=== PATIENT | female | born 1995 | race Caucasian/White ===

== ENCOUNTER 2022-12-31 07:37 | Inpatient (IN) ==
[2022-12-31] MEDS ORDERED: OXYTOCIN 30 UNITS/500 ML BAG IV PRN (08:48)
[2022-12-31] MEDS ORDERED: LIDOCAINE 1% LOCAL 20 ML VIAL INFIL PRN (08:48)
[2022-12-31] MEDS: LACTATED RINGER'S 1,000 ML IV PRN (09:05)
[2022-12-31 09:24] LABS: Hematocrit (blood only) 34.5 % (37.0-47.0); Hemoglobin 11.8 g/dl (12.0-16.0); Mean Corpuscular Hemoglobin 27.1 pg (25.0-34.0); Mean Corpuscular Hgb Conc 34.2 g/dL (32.0-36.0); Mean Corpuscular Volume 79.3 fL (80.0-100.0); Mean Platelet Volume 10.1 fL (9.4-12.4); Platelet Count 214 K/uL (130-400); RDW Coefficient of Variation 13.4 % (11.5-14.5); RDW Standard Deviation 38.1 fL (36.4-46.3); Red Blood Count 4.35 M/uL (4.20-5.40); White Blood Count 9.49 K/ul (4.8-10.8)
--- NOTE | 2022-12-31 09:39 | Labor Progress Brief Note ---
Date of Service December 31, 2022 Assessment & Plan Admission and Anticipated Discharge Date Admission Date: December 31, 2022 Physical Exam Genitourinary: Manual OB Exam: + cervical dilation 1 cm, + cervical effacement 50% and + station high OB Exam Monitor Tracing: + external FHT monitor used, + external uterine monitor used and + category I Will star Cytotec for cervical ripening Results & Data Vital Signs (Past 12 Hours) Vital Signs Temp Pulse Resp BP Pulse Ox 12/31/22 09:34 109 H 90 12/31/22 09:32 101 H 92 12/31/22 09:31 107 H 123/77 12/31/22 09:27 110 H 93 12/31/22 09:23 105 H 121/81 12/31/22 09:20 104 H 93 12/31/22 09:04 109 H 93 12/31/22 09:01 103 H 129/85 12/31/22 08:59 110 H 93 12/31/22 08:54 108 H 94 12/31/22 08:51 104 H 123/80 12/31/22 08:49 107 H 95 12/31/22 08:44 111 H 94 12/31/22 08:39 93 12/31/22 08:39 109 H 12/31/22 08:39 110 H 93 12/31/22 08:09 113 H 123/87 12/31/22 07:56 19 12/31/22 07:56 36.8 C 19 12/31/22 07:57 114 H 134/92
[2022-12-31] MEDS: ALBUT/IPRATROP 3MG/0.5MG NEB 3 ML VIAL NEB PRN ×3 (09:42→19:30)
[2022-12-31] MEDS: miSOPROStoL 50 MCG TAB PO SCH ×3 (09:54→20:00)
--- NOTE | 2022-12-31 10:52 | History & Physical Report ---
Date of Service December 31, 2022 Assessment & Plan (1) Post-dates : Plan: Cytotec for cervical ripening (2) Persistent asthma: Plan: aerosol nebulizer treatment prn Admission and Anticipated Discharge Date Admission Date: December 31, 2022 History of Present Illness Chief Complaint: induction of labor Primary Care Provider: Abraham Lindsey MD 27 F P0000 at 41.1 weeks admitted for IOL for post dates . GBS is negative. Allergies Allergy/AdvReac Type Severity Reaction Status Date / Time ENVIRONMENTAL Allergy Unknown Unknown Uncoded 07/11/14 23:11 Home Medications Medication Instructions Recorded Confirmed Type azelastine 137 mcg (0.1 %) nasal 1 spray intranasal AMHS 07/30/22 07/30/22 History spray aerosol fluticasone furoate 200 230 inh inhalation BID 07/30/22 12/31/22 History mcg-vilanterol 25 mcg/dose inhalation powder (Breo Ellipta) omeprazole 40 mg capsule,delayed 40 mg PO BID 07/30/22 12/31/22 History release ondansetron HCl 8 mg tablet 8 mg PO TID 07/30/22 07/30/22 History vit no.95-ferrous 1 tab PO DAILY 07/30/22 12/31/22 History fumarate 28 mg-folic acid 800 mcg tablet () pyridoxine (vitamin B6) 25 mg 12.5 mg PO HS PRN Nausea 07/30/22 07/30/22 History tablet (Vitamin B-6) tiotropium bromide 2.5 2.5 mcg inhalation UD 07/30/22 12/31/22 History mcg/actuation mist for inhalation (Spiriva Respimat) Patient History Medical History Bronchiectasis Eosinophilic esophagitis GERD (gastroesophageal reflux disease) Persistent asthma Seasonal allergies Family History Father Hypertension Social History Smoking Status: Never smoker Hx Alcohol Use: No Hx Substance Use: No Preferred Language: Yakut Communication Ability: Effective 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 Beliefs That Will Affect Care: None marital status: Current Living Situation: Spouse Feels Safe at Home: Yes Assistive Devices: None OB History primip [employer] History neg Review of Systems All systems reviewed & are unremarkable except as noted in HPI & below Physical Exam Eyes: PERRL, conjunctivae normal, anicteric sclerae Respiratory: normal respiratory effort, lungs clear to auscultation Cardiovascular: RRR, no murmur, no edema Gastrointestinal (Abdomen): normal bowel sounds, soft, nontender, no hepatosplenomegaly Musculoskeletal: Extremities: extremities normal to inspection Skin: no rashes, warm and dry Neurologic: patellar DTR's 2+ bilat, sensation intact Psychiatric: A+Ox3, euthymic affect Genitourinary: no vaginal lesions, no adnexal mass Manual OB Exam: + cervical dilation 1 cm, + cervical effacement 50% and + station high OB Exam Monitor Tracing: + external FHT monitor used, + external uterine monitor used and + category I Results & Data Vital Signs (Past 12 Hours) Vital Signs Temp Pulse Pulse Resp BP Pulse Ox O2 Del Method 12/31/22 09:51 95 H 18 94 Room Air 12/31/22 10:33 114 H 95 12/31/22 10:28 116 H 95 12/31/22 10:22 118 H 92 12/31/22 10:17 112 H 91 12/31/22 10:12 107 H 89 L 12/31/22 10:09 112 H 90 12/31/22 10:07 113 H 92 12/31/22 10:02 119 H 92 12/31/22 09:57 112 H 92 12/31/22 09:52 118 H 93 12/31/22 09:47 112 H 98 12/31/22 09:42 104 H 94 12/31/22 09:37 90 95 12/31/22 09:34 109 H 90 12/31/22 09:32 101 H 92 12/31/22 09:31 107 H 123/77 12/31/22 09:27 110 H 93 12/31/22 09:23 105 H 121/81 12/31/22 09:20 104 H 93 12/31/22 09:04 109 H 93 12/31/22 09:01 103 H 129/85 12/31/22 08:59 110 H 93 12/31/22 08:54 108 H 94 12/31/22 08:51 104 H 123/80 12/31/22 08:49 107 H 95 12/31/22 08:44 111 H 94 12/31/22 08:39 93 12/31/22 08:39 109 H 12/31/22 08:39 110 H 93 12/31/22 08:09 113 H 123/87 12/31/22 07:56 19 12/31/22 07:56 36.8 C 19 12/31/22 07:57 114 H 134/92 12/31/22 09:07 36.8 C 109 H 93 Room Air Laboratory Results 12/31/22 12/31/22 09:00 09:01 WBC 9.49 RBC 4.35 Hgb 11.8 L Hct 34.5 L MCV 79.3 L MCH 27.1 MCHC 34.2 RDW Std Deviation 38.1 RDW Coeff of Jillian 13.4 Plt Count 214 MPV 10.1 SARS-CoV-2, RNA, NAAT NEGATIVE Code Status & VTE Plan VTE Prophylaxis Plan VTE Prophylaxis will be ordered: No Monitoring External Monitor Cat 1
[2022-12-31] MEDS ORDERED: BUTORPHANOL TARTRATE 1 MG/ML VIAL IV PRN (22:45)
[2023-01-01] MEDS: miSOPROStoL 50 MCG TAB PO SCH (06:30)
[2023-01-01] MEDS ORDERED: OXYTOCIN 30 UNITS/500 ML BAG IV PRN (07:37)
--- NOTE | 2023-01-01 07:40 | Labor Progress Brief Note ---
Date of Service January 01, 2023 Assessment & Plan Admission and Anticipated Discharge Date Admission Date: December 31, 2022 Physical Exam Genitourinary: Manual OB Exam: + cervical dilation (cervix soft and more anterior) 3 cm, + cervical effacement 70% and + station -2 OB Exam Monitor Tracing: + external FHT monitor used, + external uterine monitor used, + category I and + normal FHT variability will start Oxytocin Results & Data Vital Signs (Past 12 Hours) Vital Signs Temp Pulse Resp BP 01/01/23 07:24 103 H 120/91 01/01/23 04:48 36.8 C 107 H 18 121/77 12/31/22 22:46 110 H 128/87 12/31/22 22:30 36.7 C
[2023-01-01] MEDS: LACTATED RINGER'S 1,000 ML IV PRN ×3 (08:54→19:22)
--- NOTE | 2023-01-01 15:45 | Labor Progress Brief Note ---
Date of Service January 01, 2023 Assessment & Plan Admission and Anticipated Discharge Date Admission Date: December 31, 2022 Physical Exam Genitourinary: Manual OB Exam: + cervical dilation 4 cm, + cervical effacement 70% and 80%, + station -2 and + amniotic fluid (AROM with Amni-hook light meconium fluid noted) meconium OB Exam Monitor Tracing: + external FHT monitor used, + external uterine monitor used, + category I and + normal FHT variability Results & Data Vital Signs (Past 12 Hours) Vital Signs Temp Pulse Resp BP 01/01/23 14:57 106 H 129/88 01/01/23 13:00 102 H 123/82 01/01/23 12:04 88 127/89 01/01/23 11:01 98 H 119/79 01/01/23 10:01 97 H 120/85 01/01/23 08:58 107 H 128/86 01/01/23 07:24 103 H 120/91 01/01/23 04:48 36.8 C 107 H 18 121/77
[2023-01-01] MEDS ORDERED: BUPIVACAINE 0.25% PF 30 ML VIAL ONE (17:24)
[2023-01-01] MEDS ORDERED: ePHEDrine sulfate 50 MG/ML AMP ONE (17:24)
[2023-01-01] MEDS ORDERED: fentaNYL citrate PF 100 MCG/2 ML VIAL ONE (17:24)
[2023-01-01] MEDS ORDERED: SODIUM CHLORIDE 0.9% PF INJ 10 ML VIAL ONE (17:24)
[2023-01-01] MEDS ORDERED: LIDOCAINE 2%/EPINEPHRINE 1:200,000 20 ML PF ONE (17:25)
[2023-01-01] MEDS ORDERED: fentaNYL 2MCG/ML ROPIVACAINE 1.25MG/ML 100 ML BAG EPI ONE (17:25)
[2023-01-01] MEDS ORDERED: ePHEDrine sulfate 50 MG/ML AMP IV PRN (17:30)
[2023-01-01] MEDS ORDERED: SODIUM CHLORIDE 0.9% PF INJ 10 ML VIAL EPI STA (17:30)
[2023-01-01] MEDS ORDERED: ROPIVACAINE 0.5% PF 5 MG/ML 20 ML VIAL EPI PRN (17:30)
[2023-01-01] MEDS ORDERED: diphenhydrAMINE 50 MG/ML VIAL IV PRN (17:30)
[2023-01-01] MEDS ORDERED: NALBUPHINE HCL INJ 10 MG/ML AMP IV PRN (17:30)
[2023-01-01] MEDS ORDERED: BUPIVACAINE 0.25% PF 30 ML VIAL EPI STA (17:30)
[2023-01-01] MEDS ORDERED: LIDOCAINE 2% MPF LOCAL 5 ML VIAL EPI PRN (17:30)
[2023-01-01] MEDS ORDERED: NALOXONE HCL 0.4 MG/1 ML VIAL/CARP IV PRN (17:30)
[2023-01-01] MEDS ORDERED: SODIUM CHLORIDE 0.9% PF INJ 10 ML VIAL EPI PRN (17:30)
[2023-01-01] MEDS ORDERED: LIDOCAINE 2%/EPINEPHRINE 1:200,000 20 ML PF EPI STA (17:30)
[2023-01-01] MEDS ORDERED: ONDANSETRON INJ 2 MG/ML 2 ML VIAL IV PRN (17:30)
[2023-01-01] MEDS ORDERED: fentaNYL citrate PF 100 MCG/2 ML VIAL EPI PRN (17:30)
[2023-01-01] MEDS ORDERED: NALOXONE HCL 1 MG in SODIUM CHLORIDE 0.9% 1000ML 1,000 ML IV PRN (17:30)
[2023-01-01] MEDS ORDERED: fentaNYL citrate PF 100 MCG/2 ML VIAL EPI STA (17:30)
[2023-01-01] MEDS ORDERED: BUPIVACAINE 0.25% PF 30 ML VIAL EPI PRN (17:30)
--- NOTE | 2023-01-01 17:32 | Anesthesiology Consultation ---
Date of Service January 01, 2023 Assessment & Plan ASA ASA2 Proposed Anesthesia Anesthesia Type: Labor Epidural Risk / Benefits Reviewed With: PT / POA / Parent / Guardian, Accepts Plan and Informed Consent Obtained History Height/Weight Height: 5 ft 3 in Weight: 168 kg Allergies Allergy/AdvReac Type Severity Reaction Status Date / Time No Known Allergies Allergy Verified 01/01/23 11:00 Medications Home Medications Medication Instructions Recorded Confirmed Last Taken azelastine 137 mcg (0.1 %) nasal 1 spray intranasal AMHS 07/30/22 07/30/22 Unknown spray aerosol fluticasone furoate 200 230 inh inhalation BID 07/30/22 12/31/22 12/31/22 mcg-vilanterol 25 mcg/dose 1 puff inhalation powder (Breo Ellipta) omeprazole 40 mg capsule,delayed 40 mg PO BID 07/30/22 12/31/22 12/31/22 release 0600 ondansetron HCl 8 mg tablet 8 mg PO TID 07/30/22 07/30/22 Unknown vit no.95-ferrous 1 tab PO DAILY 07/30/22 12/31/22 12/31/22 fumarate 28 mg-folic acid 800 mcg 0600 tablet () pyridoxine (vitamin B6) 25 mg 12.5 mg PO HS PRN Nausea 07/30/22 07/30/22 Unknown tablet (Vitamin B-6) tiotropium bromide 2.5 2.5 mcg inhalation UD 07/30/22 12/31/22 12/31/22 mcg/actuation mist for inhalation 2 puffs (Spiriva Respimat) Active Medications Generic Name Dose Route Start Last Admin Trade Name Freq PRN Reason Stop Dose Admin Albuterol 3 ml 12/31/22 09:32 12/31/22 19:30 Albut/Ipratrop 3mg/0.5mg Neb 3 Ml Vial NEB 01/30/23 10:59 3 ml Q4R PRN Administration Shortness Of Breath Protocol Butorphanol Tartrate 1 mg 12/31/22 22:45 01/01/23 15:42 Butorphanol Tartrate 1 Mg/Ml Vial IV 01/30/23 22:44 1 mg Q2HWA PRN Administration Pain Lactated Ringer's 1,000 mls @ 125 mls/hr 12/31/22 08:48 01/01/23 17:00 Lr IV 01/02/23 08:47 999 mls/hr .Q8H PRN Infusion L&D Protocol Protocol Oxytocin 30 units in 500 mls @ 5 mls/hr 01/01/23 07:37 01/01/23 16:59 Pitocin IV 01/03/23 07:36 0.3 units/hr .Q24H PRN 5 mls/hr Labor Induction/Augmentation Titration Protocol 0.3 UNITS/HR Misoprostol 50 mcg 12/31/22 09:45 01/01/23 06:30 Misoprostol 50 Mcg Tab PO 01/30/23 09:44 Not Given Q4 SURJIT Ropivacaine 100 ml 01/01/23 17:30 01/01/23 18:01 Fentanyl 2mcg/Ml Ropivacaine 1.25mg/Ml 100 Ml Bag EPI 01/02/23 17:29 100 ml PRN PRN Administration Pain R/T Labor Protocol Past Medical History Medical History Bronchiectasis Eosinophilic esophagitis GERD (gastroesophageal reflux disease) Persistent asthma Seasonal allergies Exercise / Class Metabolic Activity II 4-5 Yardwork/Stairs/Walk up hill Past Family History Family History Father Hypertension Past Anesthesia History No Hx of Anesthesia Complications and No Family Hx of Anesthesia Complications History of PONV No Hx of PONV and No Hx of Motion Sickness Social History Smoking Status: Never smoker Hx Alcohol Use: No Hx Substance Use: No Review of Systems denies fever/cough/ colds/ chest pain/ SOB/ ANNELISE denies ANNELISE Physical Exam Vital Signs Last Vital Signs Temp 37.5 C 01/01/23 15:50 Pulse 103 H 01/01/23 18:07 Resp 22 01/01/23 15:50 BP 123/81 01/01/23 18:07 Pulse Ox 97 01/01/23 18:05 O2 Del Method Room Air 12/31/22 19:06 ENMT Mouth: no TMJ abnormality and no dentition abnormality Thyromental Distance: > or= 3.5 Finger Breadths Mallampati Class: II Neck neck extension not limited Respiratory normal respiratory effort; no respiratory distress Auscultation: lungs clear to auscultation bilaterally Cardiovascular Rate/Rhythm: regular rate and regular rhythm Neurologic moves all extremities Psychiatric Orientation: alert and oriented x 3 Testing Laboratory Results 12/31/22 09:01
[2023-01-01] MEDS: fentaNYL 2MCG/ML ROPIVACAINE 1.25MG/ML 100 ML BAG EPI PRN ×2 (18:01→23:34)
--- NOTE | 2023-01-01 21:11 | Labor Progress Brief Note ---
Date of Service January 01, 2023 Assessment & Plan Admission and Anticipated Discharge Date Admission Date: December 31, 2022 Physical Exam Genitourinary: Manual OB Exam: + cervical dilation 4 cm and 5 cm, + cervical effacement 90% and + station -2 OB Exam Monitor Tracing: + external FHT monitor used, + external uterine monitor used, + category I and + normal FHT variability Results & Data Vital Signs (Past 12 Hours) Vital Signs Temp Pulse Resp BP Pulse Ox O2 Del Method 01/01/23 19:20 37.0 C 18 01/01/23 19:20 Room Air 01/01/23 21:05 114 H 97 01/01/23 21:02 116 H 123/83 01/01/23 21:00 115 H 97 01/01/23 20:55 108 H 98 01/01/23 20:50 115 H 94 01/01/23 20:45 112 H 98 01/01/23 20:46 111 H 109/65 01/01/23 20:41 110 H 85 L 01/01/23 20:40 110 H 97 01/01/23 20:35 109 H 96 01/01/23 20:32 112 H 108/70 01/01/23 20:30 36.9 C 116 H 20 98 01/01/23 20:25 108 H 98 01/01/23 20:20 110 H 99 01/01/23 20:17 105 H 121/73 01/01/23 20:15 111 H 99 01/01/23 20:10 95 H 99 01/01/23 20:05 105 H 98 01/01/23 20:00 103 H 100 01/01/23 20:01 108 H 130/82 01/01/23 19:55 114 H 98 01/01/23 19:50 109 H 100 01/01/23 19:47 107 H 123/80 01/01/23 19:45 98 H 99 01/01/23 19:40 100 H 100 01/01/23 19:35 103 H 99 01/01/23 19:30 97 H 125/80 100 01/01/23 19:25 102 H 99 01/01/23 19:20 97 H 96 01/01/23 19:15 98 01/01/23 19:15 101 H 01/01/23 19:15 101 H 121/81 90 01/01/23 19:10 110 H 100 01/01/23 19:05 104 H 100 01/01/23 19:00 100 H 100 01/01/23 19:01 100 H 119/80 01/01/23 18:55 94 H 100 01/01/23 18:50 98 H 99 01/01/23 18:45 96 H 99 01/01/23 18:44 93 H 119/92 01/01/23 18:40 103 H 99 01/01/23 18:37 100 H 119/65 01/01/23 18:35 108 H 98 01/01/23 18:33 102 H 117/55 L 01/01/23 18:30 101 H 98 01/01/23 18:28 100 H 122/59 L 01/01/23 18:25 98 H 98 01/01/23 18:23 111 H 120/77 01/01/23 18:20 102 H 98 01/01/23 18:18 107 H 117/75 01/01/23 18:15 36.7 C 99 H 18 98 01/01/23 18:14 103 H 141/84 H 01/01/23 18:10 101 H 98 01/01/23 18:07 103 H 123/81 01/01/23 18:05 100 H 97 01/01/23 18:04 99 H 121/80 01/01/23 18:03 101 H 126/79 01/01/23 18:00 97 H 96 01/01/23 18:01 96 H 126/75 01/01/23 17:59 100 H 125/69 01/01/23 17:57 103 H 112/76 01/01/23 17:55 113 H 96 01/01/23 17:54 115 H 94 01/01/23 17:50 109 H 97 01/01/23 17:45 116 H 95 01/01/23 15:50 22 01/01/23 15:50 37.5 C 22 01/01/23 14:57 106 H 129/88 01/01/23 13:00 102 H 123/82 01/01/23 12:04 88 127/89 01/01/23 11:01 98 H 119/79 01/01/23 10:01 97 H 120/85
[2023-01-02] MEDS: LACTATED RINGER'S 1,000 ML IV PRN ×2 (01:15→07:20)
[2023-01-02] MEDS: fentaNYL 2MCG/ML ROPIVACAINE 1.25MG/ML 100 ML BAG EPI PRN (04:21)
[2023-01-02] MEDS ORDERED: NURSING L&D Epidural Breakthrough Pain Update ONE (04:25)
[2023-01-02] MEDS ORDERED: ROPIVACAINE 0.5% 5 MG/ML 30 ML VIAL ONE (05:12)
[2023-01-02] MEDS ORDERED: fentaNYL citrate PF 100 MCG/2 ML VIAL ONE ×3 (05:12→08:33)
[2023-01-02] MEDS ORDERED: LIDOCAINE 2%/EPINEPHRINE 1:200,000 20 ML PF ONE (05:12)
--- NOTE | 2023-01-02 05:20 | Anesthesia Procedure Note ---
Date of Service January 02, 2023 Anesthesia Epidural Re-Dose Vital Signs Temp Pulse Resp BP Pulse Ox O2 Del Method 37.3 C 125 H 18 139/96 97 Room Air 01/02/23 05:13 01/02/23 05:16 01/02/23 05:13 01/02/23 05:16 01/02/23 05:15 01/01/23 19:20 Notes Pain Intensity: 4 Dilatation (cm): 5.5 Effacement (%): 90 Called by nursing to evaluate epidural as the patient is having increased pain. The epidural was re-dosed with the following medications (all medications via epidural route) after negative aspiration of the epidural catheter for CSF/HEME. 2ml 2% lidocaine with epi, 3mL ropivacaine 0.5% and 100 mcg fetanyl via epidural After Epidural Re-Dose Mental Status: alert / awake / arousable Pain: improving with treatment Airway Patency, RR, SpO2: stable & adequate BP & HR: stable & adequate
[2023-01-02] MEDS ORDERED: CITRIC ACID/SODIUM CITRATE 15 ML UDC PO SCH (06:00)
[2023-01-02] MEDS ORDERED: ceFAZolin 2000MG 2,000 MG/15 ML SYR IV SCH (06:00)
--- NOTE | 2023-01-02 06:40 | Labor Progress Brief Note ---
Date of Service January 02, 2023 Assessment & Plan Admission and Anticipated Discharge Date Admission Date: December 31, 2022 Physical Exam Genitourinary: Manual OB Exam: + cervical dilation 5 cm, + cervical effacement 90% and + station -1 OB Exam Monitor Tracing: + external FHT monitor used, + external uterine monitor used, + category I and + normal FHT variability No progress in labor over several hours. Arrest of progress/CPD/41.2 weeks as indication for I discussed this with patient and her Consent idalmis and risks/benefits explained to patient. Results & Data Vital Signs (Past 12 Hours) Vital Signs Temp Pulse Resp BP Pulse Ox O2 Del Method 01/01/23 19:20 37.0 C 18 01/01/23 19:20 Room Air 01/02/23 06:34 142 H 89 L 01/02/23 06:30 144 H 98 01/02/23 06:25 141 H 91 01/02/23 06:22 132 H 86 L 01/02/23 06:20 137 H 97 01/02/23 06:16 115 H 108/69 01/02/23 06:15 116 H 93 01/02/23 06:10 131 H 93 01/02/23 06:05 115 H 96 01/02/23 06:01 120 H 109/67 01/02/23 06:00 128 H 95 01/02/23 05:55 121 H 97 01/02/23 05:50 132 H 97 01/02/23 05:48 136 H 87 L 01/02/23 05:47 121 H 110/67 01/02/23 05:45 120 H 96 01/02/23 05:40 124 H 97 01/02/23 05:35 124 H 97 01/02/23 05:36 121 H 112/68 01/02/23 05:30 135 H 97 01/02/23 05:25 133 H 97 01/02/23 05:20 128 H 97 01/02/23 05:16 125 H 139/96 01/02/23 05:15 127 H 97 01/02/23 05:13 18 01/02/23 05:13 37.3 C 18 01/02/23 05:10 124 H 98 01/02/23 05:05 124 H 99 01/02/23 05:03 141 H 88 L 01/02/23 05:01 120 H 120/78 01/02/23 05:00 126 H 95 01/02/23 04:55 115 H 96 01/02/23 04:50 121 H 96 01/02/23 04:46 126 H 130/71 01/02/23 04:45 122 H 97 01/02/23 04:40 133 H 95 01/02/23 04:35 133 H 95 01/02/23 04:30 129 H 96 01/02/23 04:31 126 H 130/78 01/02/23 04:25 132 H 95 01/02/23 04:20 132 H 97 01/02/23 04:15 136 H 95 01/02/23 04:16 141 H 123/73 01/02/23 04:12 18 01/02/23 04:12 37.5 C 18 01/02/23 04:10 135 H 95 01/02/23 04:05 128 H 95 01/02/23 04:00 125 H 93 01/02/23 04:01 123 H 122/77 01/02/23 03:55 122 H 92 01/02/23 03:50 124 H 93 01/02/23 03:47 125 H 119/73 01/02/23 03:45 121 H 94 01/02/23 03:40 142 H 95 01/02/23 03:35 126 H 93 01/02/23 03:30 125 H 18 130/85 94 01/02/23 03:25 120 H 93 01/02/23 03:20 121 H 92 01/02/23 03:15 120 H 135/83 93 01/02/23 03:10 122 H 93 01/02/23 03:05 121 H 92 01/02/23 03:00 120 H 18 130/87 94 01/02/23 02:55 118 H 93 01/02/23 02:50 119 H 93 01/02/23 02:47 121 H 132/88 01/02/23 02:45 117 H 94 01/02/23 02:40 118 H 94 01/02/23 02:35 117 H 94 01/02/23 02:30 125 H 133/90 95 01/02/23 02:25 127 H 96 01/02/23 02:20 124 H 95 01/02/23 02:15 120 H 96 01/02/23 02:16 121 H 130/84 01/02/23 02:10 119 H 96 01/02/23 02:05 116 H 96 01/02/23 02:02 116 H 145/87 H 01/02/23 02:00 119 H 97 01/02/23 01:55 115 H 95 01/02/23 01:50 114 H 97 01/02/23 01:45 124 H 96 01/02/23 01:46 118 H 132/79 01/02/23 01:40 122 H 96 01/02/23 01:35 121 H 97 01/02/23 01:30 115 H 96 01/02/23 01:31 114 H 126/90 01/02/23 01:25 116 H 98 01/02/23 01:20 115 H 97 01/02/23 01:19 18 01/02/23 01:19 37.0 C 18 01/02/23 01:17 116 H 137/95 01/02/23 01:15 120 H 96 01/02/23 01:10 121 H 96 01/02/23 01:05 113 H 99 01/02/23 01:01 121 H 134/87 01/02/23 01:00 126 H 99 01/02/23 00:55 123 H 95 01/02/23 00:50 119 H 94 01/02/23 00:46 114 H 137/95 01/02/23 00:45 114 H 94 01/02/23 00:40 111 H 95 01/02/23 00:35 110 H 98 01/02/23 00:30 113 H 94 01/02/23 00:31 111 H 134/91 01/02/23 00:25 110 H 94 01/02/23 00:20 109 H 97 01/02/23 00:18 112 H 133/92 01/02/23 00:15 116 H 99 01/02/23 00:10 120 H 99 01/02/23 00:05 131 H 97 01/02/23 00:01 118 H 123/80 01/02/23 00:00 110 H 94 01/01/23 23:55 108 H 94 01/01/23 23:50 110 H 94 01/01/23 23:46 113 H 118/76 01/01/23 23:45 110 H 95 01/01/23 23:40 108 H 96 07/12/23 23:35 113 H 97 01/01/23 23:32 112 H 119/73 01/01/23 23:30 118 H 98 01/01/23 23:25 109 H 96 01/01/23 23:20 112 H 96 01/01/23 23:16 111 H 128/81 01/01/23 23:15 116 H 96 01/01/23 23:10 111 H 96 01/01/23 23:05 115 H 97 01/01/23 23:02 117 H 134/80 01/01/23 23:00 111 H 97 01/01/23 22:55 37.5 C 120 H 18 97 01/01/23 22:52 120 H 147/78 H 01/01/23 22:50 127 H 96 01/01/23 22:47 142 H 162/107 H 01/01/23 22:45 117 H 99 01/01/23 22:40 115 H 98 01/01/23 22:35 116 H 99 01/01/23 22:30 116 H 98 01/01/23 22:31 117 H 120/71 01/01/23 22:25 112 H 98 01/01/23 22:20 114 H 99 01/01/23 22:16 120 H 126/62 01/01/23 22:15 114 H 98 01/01/23 22:10 120 H 96 01/01/23 22:05 119 H 98 01/01/23 22:00 113 H 95 01/01/23 22:01 129 H 119/67 01/01/23 21:55 122 H 97 01/01/23 21:50 121 H 96 01/01/23 21:46 116 H 137/92 01/01/23 21:45 118 H 97 01/01/23 21:40 121 H 96 01/01/23 21:35 111 H 98 01/01/23 21:30 117 H 140/91 97 01/01/23 21:25 113 H 99 01/01/23 21:20 123 H 98 01/01/23 21:17 18 01/01/23 21:17 37.7 C H 18 01/01/23 21:15 115 H 98 01/01/23 21:16 114 H 138/85 01/01/23 21:10 120 H 97 01/01/23 21:05 114 H 97 01/01/23 21:02 116 H 123/83 01/01/23 21:00 115 H 97 01/01/23 20:55 108 H 98 01/01/23 20:50 115 H 94 01/01/23 20:45 112 H 98 01/01/23 20:46 111 H 109/65 01/01/23 20:41 110 H 85 L 01/01/23 20:40 110 H 97 01/01/23 20:35 109 H 96 01/01/23 20:32 112 H 108/70 01/01/23 20:30 36.9 C 116 H 20 98 01/01/23 20:25 108 H 98 01/01/23 20:20 110 H 99 01/01/23 20:17 105 H 121/73 01/01/23 20:15 111 H 99 01/01/23 20:10 95 H 99 01/01/23 20:05 105 H 98 01/01/23 20:00 103 H 100 01/01/23 20:01 108 H 130/82 01/01/23 19:55 114 H 98 01/01/23 19:50 109 H 100 01/01/23 19:47 107 H 123/80 01/01/23 19:45 98 H 99 01/01/23 19:40 100 H 100 01/01/23 19:35 103 H 99 01/01/23 19:30 97 H 125/80 100 01/01/23 19:25 102 H 99 01/01/23 19:20 97 H 96 01/01/23 19:15 98 01/01/23 19:15 101 H 01/01/23 19:15 101 H 121/81 90 01/01/23 19:10 110 H 100 01/01/23 19:05 104 H 100 01/01/23 19:00 100 H 100 01/01/23 19:01 100 H 119/80 01/01/23 18:55 94 H 100 01/01/23 18:50 98 H 99 01/01/23 18:45 96 H 99 01/01/23 18:44 93 H 119/92 01/01/23 18:40 103 H 99 01/01/23 18:37 100 H 119/65
[2023-01-02] MEDS ORDERED: AZITHROMYCIN 500 MG in DEXTROSE 5% 250 ML IV ONE (06:56)
[2023-01-02] MEDS ORDERED: LACTATED RINGER'S 1,000 ML IV SCH ×2 (07:00→09:54)
[2023-01-02] MEDS ORDERED: OXYTOCIN 10 UNITS/ML VIAL ONE (08:10)
[2023-01-02] MEDS ORDERED: ONDANSETRON INJ 2 MG/ML 2 ML VIAL ONE (08:10)
[2023-01-02] MEDS ORDERED: PHENYLEPHRINE 100MCG/ML 5ML SYR ONE (08:27)
[2023-01-02] MEDS ORDERED: METHYLERGONOVINE MALEATE 0.2 MG/ML AMP ONE (08:27)
[2023-01-02] MEDS ORDERED: MoRPHine SULFATE PF 1 MG/ML 10 ML AMP/VIAL ONE (08:35)
--- NOTE | 2023-01-02 09:12 | Anesthesia Procedure Note ---
Date of Service January 02, 2023 Anesthesia Post Epidural Note Vital Signs Vital Signs: Temp Pulse Resp BP Pulse Ox O2 Del Method 37.3 C 131 H 18 118/79 80 L Room Air 01/02/23 05:13 01/02/23 09:10 01/02/23 05:13 01/02/23 09:06 01/02/23 09:10 01/01/23 19:20 Notes Mental Status: alert / awake / arousable Nausea / Vomiting: adequately controlled Pain: adequately controlled Airway Patency, RR, SpO2: stable & adequate BP & HR: stable & adequate Hydration State: stable & adequate Neuraxial Anesthesia: was administered and sensory block is resolving Anesthetic Complications: no major complications apparent and Pt Satisfied with anesthetic care Epidural: Removed without complications and With tip intact
[2023-01-02] MEDS ORDERED: diphenhydrAMINE 50 MG/ML VIAL IV PRN (09:14)
[2023-01-02] MEDS ORDERED: METOCLOPRAMIDE HCL 10 MG in SODIUM CHLORIDE 0.9% 50 ML IV PRN (09:14)
[2023-01-02] MEDS ORDERED: NALOXONE HCL 1 MG in SODIUM CHLORIDE 0.9% 1000ML 1,000 ML IV PRN (09:14)
[2023-01-02] MEDS ORDERED: HYDROmorphone INJ 0.5 MG/0.5 ML SYR IV PRN (09:14)
[2023-01-02] MEDS ORDERED: MEPERIDINE HCL 25 MG/ML CARP/VIAL IV PRN (09:14)
[2023-01-02] MEDS ORDERED: LACTATED RINGER'S 500 ML IV PRN (09:14)
[2023-01-02] MEDS ORDERED: ePHEDrine sulfate 50 MG/ML AMP IV PRN (09:14)
[2023-01-02] MEDS ORDERED: PROMETHAZINE HCL 12.5 MG in SODIUM CHLORIDE 0.9% 50 ML IV PRN (09:14)
[2023-01-02] MEDS ORDERED: ONDANSETRON INJ 2 MG/ML 2 ML VIAL IV PRN (09:14)
[2023-01-02] MEDS ORDERED: NALOXONE HCL 0.4 MG/1 ML VIAL/CARP IV PRN (09:14)
[2023-01-02] MEDS ORDERED: MoRPHine SULFATE 2 MG/ML CARP IV PRN (09:14)
[2023-01-02] MEDS ORDERED: NALOXONE HCL 0.08 MG in SYRINGE 1.8 ML IV PRN (09:14)
[2023-01-02] MEDS ORDERED: MoRPHine SULFATE PF 1 MG/ML 10 ML AMP/VIAL INT SPINAL ONE (09:14)
[2023-01-02] MEDS ORDERED: DC INTRASPINAL MORPHINE SCH (09:15)
[2023-01-02] MEDS ORDERED: SODIUM CHLORIDE 0.9% 1000ML 1,000 ML IV SCH (09:15)
[2023-01-02] MEDS ORDERED: NO NARCOTICS OR SEDATIVES SCH (09:15)
[2023-01-02] MEDS ORDERED: ACETAMINOPHEN 1,000 MG/100 ML VIAL IV PRN (09:16)
--- NOTE | 2023-01-02 09:16 | Post Operative Brief Note ---
Immediate Post Op Note v1 Date of Surgery January 02, 2023 Pre & Post Diagnosis Operation Date: 01/02/23 07:45 Pre-Op Diagnosis: Arrest of descent Failure to progress Postdates Post-Op Diagnosis: Arrest of descent Failure to progress Postdates I identified the patient and participated in the time-out.: Yes Procedure Operation Date: 01/02/23 07:45 Actual Procedures p Section in LD, of live male child at 0810 - Casey Yan MD Surgeon Casey Yan MD Head Waiter Christina Ott RN Estimated Blood Loss 800 Findings Consistent with Post-Op Diagnosis live male Apgars 8/9 weight pending transverse lie Fluids LR 500 ml. Specimens placenta Drains Tam Catheter Anesthesia Type Labor Epidural Complications none Disposition Accompanied Patient To Recovery: Yes Overlapping Procedure I was present for: the critical portions of procedure. I was immediately available: during the entire case. Back up surgeon: was not required during procedure.
[2023-01-02] MEDS ORDERED: MAGNESIUM HYDROXIDE SUSP 30 ML UDC PO PRN (09:54)
[2023-01-02] MEDS ORDERED: PYRIDOXINE HCL 50 MG TAB PO PRN (09:54)
[2023-01-02] MEDS ORDERED: BENZOCAINE 20% AER SPR 82.5 GM CAN EXT PRN (09:54)
[2023-01-02] MEDS ORDERED: HYDROCORTISONE ACETATE 25 MG SUPP PR PRN (09:54)
[2023-01-02] MEDS ORDERED: DIPHTHERIA/TETANUS/PERTUSSIS Vaccine (Tdap, Age 7+yrs) 0.5mL SYR/VL IM ONE (09:54)
[2023-01-02] MEDS ORDERED: SENNA 8.6 MG TAB PO PRN (09:54)
[2023-01-02] MEDS: OXYTOCIN 20 UNITS in LACTATED RINGER'S 1,000 ML IV SCH ×2 (10:14→19:19)
[2023-01-02] MEDS: ceFAZolin 2000MG 2,000 MG/15 ML SYR IV SCH ×2 (10:16→17:46)
[2023-01-02] MEDS: NALBUPHINE HCL INJ 10 MG/ML AMP IV PRN ×5 (10:28→23:54)
[2023-01-02] MEDS: SIMETHICONE 80 MG CHEW PO SCH ×3 (12:42→20:26)
[2023-01-02] MEDS: KETOROLAC 30 MG/ML VIAL IV PRN ×2 (12:43→23:53)
[2023-01-02] MEDS: UMECLIDINIUM BROMIDE 62.5MCG/BLISTER 7 PUFFS/INHALER INH SCH (12:46)
[2023-01-02] MEDS: FLUTICASONE/VILANTEROL 200/25MCG 14 PUFFS/INHALER INH SCH (12:46)
[2023-01-02] MEDS ORDERED: AZITHROMYCIN 500 MG in DEXTROSE 5% 250 ML IV SCH (14:00)
--- NOTE | 2023-01-02 15:11 | Anesthesiology Progress Note ---
Date of Service January 02, 2023 Anesthesia Post Procedure Vital Signs Vital Signs: Temp Pulse Resp BP Pulse Ox O2 Del Method 01/02/23 11:05 120 H 16 124/77 97 01/02/23 10:35 122 H 18 124/63 91 01/02/23 10:05 138 H 16 131/73 94 01/02/23 09:55 134 H 18 118/67 93 01/02/23 09:45 135 H 18 119/69 01/02/23 09:36 150 H 18 95 01/02/23 09:25 139 H 20 111/84 95 01/02/23 09:15 130 H 16 116/79 96 01/02/23 09:05 37.0 C 126 H 18 118/79 97 01/01/23 19:20 37.0 C 18 01/01/23 19:20 Room Air 01/02/23 11:15 121 H 115/70 01/02/23 11:14 125 H 95 01/02/23 11:13 123 H 91 01/02/23 11:09 126 H 88 L 01/02/23 11:07 122 H 90 01/02/23 11:06 127 H 124/77 01/02/23 11:04 128 H 92 01/02/23 11:02 128 H 90 01/02/23 10:59 133 H 92 01/02/23 10:57 131 H 91 01/02/23 10:55 133 H 107/58 L 01/02/23 10:54 131 H 92 01/02/23 10:52 130 H 90 01/02/23 10:49 131 H 93 01/02/23 10:45 131 H 124/63 01/02/23 10:44 131 H 92 01/02/23 10:42 135 H 91 01/02/23 10:39 136 H 93 01/02/23 10:36 124 H 91 01/02/23 10:35 122 H 124/63 01/02/23 10:34 128 H 93 01/02/23 10:30 126 H 91 01/02/23 10:29 127 H 92 01/02/23 10:26 136 H 137/70 01/02/23 10:24 145 H 94 01/02/23 10:19 132 H 94 01/02/23 10:15 131 H 117/61 01/02/23 10:14 134 H 92 07/13/23 10:13 144 H 90 01/02/23 10:09 135 H 95 01/02/23 10:05 134 H 131/73 01/02/23 10:04 134 H 94 01/02/23 09:59 134 H 93 01/02/23 09:56 133 H 118/67 01/02/23 09:54 136 H 93 01/02/23 09:49 143 H 95 01/02/23 09:45 134 H 119/69 01/02/23 09:44 94 01/02/23 09:44 137 H 01/02/23 09:44 142 H 118/75 01/02/23 09:39 152 H 96 01/02/23 09:34 150 H 95 01/02/23 09:29 162 H 94 01/02/23 09:25 144 H 111/84 01/02/23 09:24 137 H 97 01/02/23 09:19 136 H 98 01/02/23 09:17 130 H 94 01/02/23 09:16 130 H 116/79 01/02/23 09:14 132 H 97 01/02/23 09:10 131 H 80 L 01/02/23 09:09 132 H 97 01/02/23 09:06 126 H 118/79 01/02/23 09:04 126 H 97 01/02/23 09:03 130 H 126/81 01/02/23 07:45 142 H 138/82 96 01/02/23 07:43 133 H 129/81 01/02/23 07:40 138 H 96 01/02/23 07:41 136 H 126/79 01/02/23 07:37 139 H 132/63 01/02/23 07:35 138 H 95 01/02/23 07:34 135 H 90 01/02/23 07:32 137 H 126/62 01/02/23 07:30 135 H 96 01/02/23 07:25 142 H 94 01/02/23 07:20 138 H 96 01/02/23 07:15 142 H 95 01/02/23 07:16 37.6 C H 141 H 20 130/59 L 01/02/23 07:10 139 H 96 01/02/23 07:05 142 H 96 01/02/23 07:03 141 H 143/89 H 01/02/23 07:01 144 H 122/70 01/02/23 07:00 146 H 95 01/02/23 06:55 148 H 96 01/02/23 06:50 142 H 98 01/02/23 06:46 136 H 138/85 01/02/23 06:45 138 H 96 01/02/23 06:40 136 H 98 01/02/23 06:35 138 H 98 01/02/23 06:34 142 H 89 L 01/02/23 06:30 144 H 98 01/02/23 06:25 141 H 91 01/02/23 06:22 132 H 86 L 01/02/23 06:20 137 H 97 01/02/23 06:16 115 H 108/69 01/02/23 06:15 116 H 93 01/02/23 06:10 131 H 93 01/02/23 06:05 115 H 96 01/02/23 06:01 120 H 109/67 01/02/23 06:00 128 H 95 01/02/23 05:55 121 H 97 01/02/23 05:50 132 H 97 01/02/23 05:48 136 H 87 L 01/02/23 05:47 121 H 110/67 01/02/23 05:45 120 H 96 01/02/23 05:40 124 H 97 01/02/23 05:35 124 H 97 01/02/23 05:36 121 H 112/68 01/02/23 05:30 135 H 97 01/02/23 05:25 133 H 97 01/02/23 05:20 128 H 97 01/02/23 05:16 125 H 139/96 01/02/23 05:15 127 H 97 01/02/23 05:13 18 01/02/23 05:13 37.3 C 18 01/02/23 05:10 124 H 98 01/02/23 05:05 124 H 99 01/02/23 05:03 141 H 88 L 01/02/23 05:01 120 H 120/78 01/02/23 05:00 126 H 95 01/02/23 04:55 115 H 96 01/02/23 04:50 121 H 96 01/02/23 04:46 126 H 130/71 01/02/23 04:45 122 H 97 01/02/23 04:40 133 H 95 01/02/23 04:35 133 H 95 01/02/23 04:30 129 H 96 07 04:31 126 H 130/78 01/02/23 04:25 132 H 95 01/02/23 04:20 132 H 97 01/02/23 04:15 136 H 95 01/02/23 04:16 141 H 123/73 01/02/23 04:12 18 01/02/23 04:12 37.5 C 18 01/02/23 04:10 135 H 95 01/02/23 04:05 128 H 95 01/02/23 04:00 125 H 93 01/02/23 04:01 123 H 122/77 01/02/23 03:55 122 H 92 01/02/23 03:50 124 H 93 01/02/23 03:47 125 H 119/73 01/02/23 03:45 121 H 94 01/02/23 03:40 142 H 95 01/02/23 03:35 126 H 93 01/02/23 03:30 125 H 18 130/85 94 01/02/23 03:25 120 H 93 01/02/23 03:20 121 H 92 01/02/23 03:15 120 H 135/83 93 01/02/23 03:10 122 H 93 01/02/23 03:05 121 H 92 01/02/23 03:00 120 H 18 130/87 94 01/02/23 02:55 118 H 93 01/02/23 02:50 119 H 93 01/02/23 02:47 121 H 132/88 01/02/23 02:45 117 H 94 01/02/23 02:40 118 H 94 01/02/23 02:35 117 H 94 01/02/23 02:30 125 H 133/90 95 01/02/23 02:25 127 H 96 01/02/23 02:20 124 H 95 01/02/23 02:15 120 H 96 01/02/23 02:16 121 H 130/84 01/02/23 02:10 119 H 96 01/02/23 02:05 116 H 96 01/02/23 02:02 116 H 145/87 H 01/02/23 02:00 119 H 97 01/02/23 01:55 115 H 95 01/02/23 01:50 114 H 97 01/02/23 01:45 124 H 96 01/02/23 01:46 118 H 132/79 01/02/23 01:40 122 H 96 01/02/23 01:35 121 H 97 01/02/23 01:30 115 H 96 01/02/23 01:31 114 H 126/90 01/02/23 01:25 116 H 98 01/02/23 01:20 115 H 97 01/02/23 01:19 18 01/02/23 01:19 37.0 C 18 01/02/23 01:17 116 H 137/95 01/02/23 01:15 120 H 96 01/02/23 01:10 121 H 96 01/02/23 01:05 113 H 99 01/02/23 01:01 121 H 134/87 01/02/23 01:00 126 H 99 01/02/23 00:55 123 H 95 01/02/23 00:50 119 H 94 01/02/23 00:46 114 H 137/95 01/02/23 00:45 114 H 94 01/02/23 00:40 111 H 95 01/02/23 00:35 110 H 98 01/02/23 00:30 113 H 94 01/02/23 00:31 111 H 134/91 01/02/23 00:25 110 H 94 01/02/23 00:20 109 H 97 01/02/23 00:18 112 H 133/92 01/02/23 00:15 116 H 99 01/02/23 00:10 120 H 99 01/02/23 00:05 131 H 97 01/02/23 00:01 118 H 123/80 01/02/23 00:00 110 H 94 01/01/23 23:55 108 H 94 01/01/23 23:50 110 H 94 01/01/23 23:46 113 H 118/76 01/01/23 23:45 110 H 95 01/01/23 23:40 108 H 96 01/01/23 23:35 113 H 97 01/01/23 23:32 112 H 119/73 01/01/23 23:30 118 H 98 01/01/23 23:25 109 H 96 01/01/23 23:20 112 H 96 01/01/23 23:16 111 H 128/81 01/01/23 23:15 116 H 96 01/01/23 23:10 111 H 96 01/01/23 23:05 115 H 97 01/01/23 23:02 117 H 134/80 01/01/23 23:00 111 H 97 01/01/23 22:55 37.5 C 120 H 18 97 01/01/23 22:52 120 H 147/78 H 01/01/23 22:50 127 H 96 01/01/23 22:47 142 H 162/107 H 01/01/23 22:45 117 H 99 01/01/23 22:40 115 H 98 01/01/23 22:35 116 H 99 01/01/23 22:30 116 H 98 01/01/23 22:31 117 H 120/71 01/01/23 22:25 112 H 98 01/01/23 22:20 114 H 99 01/01/23 22:16 120 H 126/62 01/01/23 22:15 114 H 98 01/01/23 22:10 120 H 96 01/01/23 22:05 119 H 98 01/01/23 22:00 113 H 95 01/01/23 22:01 129 H 119/67 01/01/23 21:55 122 H 97 01/01/23 21:50 121 H 96 01/01/23 21:46 116 H 137/92 01/01/23 21:45 118 H 97 01/01/23 21:40 121 H 96 01/01/23 21:35 111 H 98 01/01/23 21:30 117 H 140/91 97 01/01/23 21:25 113 H 99 01/01/23 21:20 123 H 98 01/01/23 21:17 18 01/01/23 21:17 37.7 C H 18 01/01/23 21:15 115 H 98 01/01/23 21:16 114 H 138/85 01/01/23 21:10 120 H 97 01/01/23 21:05 114 H 97 01/01/23 21:02 116 H 123/83 01/01/23 21:00 115 H 97 01/01/23 20:55 108 H 98 01/01/23 20:50 115 H 94 01/01/23 20:45 112 H 98 01/01/23 20:46 111 H 109/65 01/01/23 20:41 110 H 85 L 01/01/23 20:40 110 H 97 01/01/23 20:35 109 H 96 01/01/23 20:32 112 H 108/70 01/01/23 20:30 36.9 C 116 H 20 98 01/01/23 20:25 108 H 98 01/01/23 20:20 110 H 99 01/01/23 20:17 105 H 121/73 01/01/23 20:15 111 H 99 01/01/23 20:10 95 H 99 01/01/23 20:05 105 H 98 01/01/23 20:00 103 H 100 01/01/23 20:01 108 H 130/82 01/01/23 19:55 114 H 98 01/01/23 19:50 109 H 100 01/01/23 19:47 107 H 123/80 01/01/23 19:45 98 H 99 01/01/23 19:40 100 H 100 01/01/23 19:35 103 H 99 01/01/23 19:30 97 H 125/80 100 01/01/23 19:25 102 H 99 01/01/23 19:20 97 H 96 01/01/23 19:15 98 01/01/23 19:15 101 H 01/01/23 19:15 101 H 121/81 90 01/01/23 19:10 110 H 100 01/01/23 19:05 104 H 100 01/01/23 19:00 100 H 100 01/01/23 19:01 100 H 119/80 01/01/23 18:55 94 H 100 01/01/23 18:50 98 H 99 01/01/23 18:45 96 H 99 01/01/23 18:44 93 H 119/92 01/01/23 18:40 103 H 99 01/01/23 18:37 100 H 119/65 01/01/23 18:35 108 H 98 01/01/23 18:33 102 H 117/55 L 01/01/23 18:30 101 H 98 01/01/23 18:28 100 H 122/59 L 01/01/23 18:25 98 H 98 01/01/23 18:23 111 H 120/77 01/01/23 18:20 102 H 98 01/01/23 18:18 107 H 117/75 01/01/23 18:15 36.7 C 99 H 18 98 01/01/23 18:14 103 H 141/84 H 01/01/23 18:10 101 H 98 01/01/23 18:07 103 H 123/81 01/01/23 18:05 100 H 97 01/01/23 18:04 99 H 121/80 01/01/23 18:03 101 H 126/79 01/01/23 18:00 97 H 96 01/01/23 18:01 96 H 126/75 01/01/23 17:59 100 H 125/69 01/01/23 17:57 103 H 112/76 01/01/23 17:55 113 H 96 01/01/23 17:54 115 H 94 01/01/23 17:50 109 H 97 01/01/23 17:45 116 H 95 01/01/23 15:50 22 01/01/23 15:50 37.5 C 22 Pain Intensity Lower Medial Abdomen: Pain Intensity: 4 Transfer of Care Handoff Completed per policy Notes Mental Status: alert / awake / arousable and participated in evaluation Nausea / Vomiting: adequately controlled Pain: adequately controlled Airway Patency, RR, SpO2: stable & adequate BP & HR: stable & adequate Hydration State: stable & adequate Neuraxial Anesthesia: was administered and sensory block is resolving Anesthetic Complications: no major complications apparent and Pt Satisfied with anesthetic care
[2023-01-02] MEDS: DOCUSATE SODIUM 100 MG CAP PO SCH (20:26)
[2023-01-02] MEDS: PANTOprazole 40 MG TAB PO SCH (20:26)
--- NOTE | 2023-01-02 22:35 | Operative Report ---
Post Operative Report Pre & Post Diagnosis Operation Date: 01/02/23 07:45 Pre-Op Diagnosis: Arrest of descent Failure to progress Postdates Post-Op Diagnosis: Arrest of descent Failure to progress Postdates I identified the patient and participated in the time-out.: Yes Procedure Operation Date: 01/02/23 07:45 Actual Procedures p Section in LD, of live male child at 0810 - Casey Yan MD Surgeon Casey Yan MD Executive [employer] Christina Ott RN Estimated Blood Loss 800 Findings Consistent with Post-Op Diagnosis live male Apgars 8/9 Fluids LR 500 ml. Specimens placenta Drains Tam 150 ml clear urine Anesthesia Type Labor Epidural Complications none Disposition Accompanied Patient To Recovery: Yes Indications arrest of progress CPD 41.3 weeks Description of Procedure Description of procedure under satisfactory epidural anesthesia the patient was prepped draped in usual sterile fashion. A timeout was called and antibiotics were given preop. A Pfannenstiel incision was then used to carry the incision down through layers of the abdominal cavity in successive layers without difficulty upon entering into the peritoneal cavity pickups with teeth and Metzenbaum scissors were then used to develop the bladder flap a low segment transverse incision over the lower uterine segment was then made the incision was widened in the AP diameter and then nicked with an Allis clamp found to be thick meconium the infant was then delivered from the vertex presentation with the aid of fundal pressure the baby was in the transverse lie. Following this Pitocin was started and the IV cord blood was obtained and the placenta was delivered spontaneously and intact the uterus was found to be somewhat boggy Methergine was given I am. The uterus was then massaged vigorously. Ring forceps were then placed on both angles and the inferior margin of the uterus was then closed in a double layer closure with 0 Vicryl suture in a continuous interlocking fashion. Due to the elevated were found to be within normal limits bilaterally. The contents of the lower uterine segment was inspected the initial sponge needle instrument count was found to be correct abdominal cavity was then irrigated to clear. Uterus was then placed back into the normal anatomical position. The fascia was then reapproximated from both ends using 0 Vicryl suture in a continuous fashion. Subcuticular space was then irrigated the skin was then reapproximated with dwaine due to the patient's discomfort at the end of the procedure. The estimated blood loss was 800 mL. Tam catheter draining clear urine of 150 mL and the total fluids were 500 mL. The final sponge needle instrument count were found to be correct the patient was then placed supine on stretcher taken to recovery room in stable condition in the operative note on Yajaira Friend thank you I attest to the content of the Intraoperative Record and any orders documented therein. Any exceptions are noted below.
[2023-01-03] MEDS: ALBUT/IPRATROP 3MG/0.5MG NEB 3 ML VIAL NEB PRN (00:45)
[2023-01-03] MEDS ORDERED: ONDANSETRON INJ 2 MG/ML 2 ML VIAL IV PRN (03:14)
[2023-01-03] MEDS ORDERED: diphenhydrAMINE Capsule 25 MG CAP PO PRN (03:14)
[2023-01-03] MEDS ORDERED: diphenhydrAMINE 50 MG/ML VIAL IV PRN (03:14)
[2023-01-03] MEDS ORDERED: PROMETHAZINE HCL 25 MG in SODIUM CHLORIDE 0.9% 50 ML IV PRN (03:14)
[2023-01-03] MEDS ORDERED: MEPERIDINE HCL 50 MG/ML CARP IV PRN (03:14)
[2023-01-03] MEDS ORDERED: KETOROLAC 30 MG/ML VIAL IV PRN (03:14)
[2023-01-03] MEDS: oxyCODONE/ACETAMINOPHEN 5mg/325mg TAB PO PRN ×4 (03:32→20:20)
[2023-01-03] MEDS: IBUPROFEN 600 MG TAB PO PRN ×4 (05:54→20:20)
[2023-01-03] MEDS: SIMETHICONE 80 MG CHEW PO SCH ×4 (08:05→20:20)
[2023-01-03] MEDS: DOCUSATE SODIUM 100 MG CAP PO SCH ×2 (08:06→20:20)
[2023-01-03] MEDS: FERROUS SULFATE 325 MG TAB PO SCH (08:06)
[2023-01-03] MEDS: PRENATAL VITAMIN 1 TAB PO SCH (08:06)
[2023-01-03] MEDS: ONDANSETRON 8MG OD TAB PO SCH ×3 (08:14→20:21)
[2023-01-03] MEDS: PANTOprazole 40 MG TAB PO SCH ×2 (08:14→20:21)
[2023-01-03] MEDS: UMECLIDINIUM BROMIDE 62.5MCG/BLISTER 7 PUFFS/INHALER INH SCH (08:16)
[2023-01-03] MEDS: FLUTICASONE/VILANTEROL 200/25MCG 14 PUFFS/INHALER INH SCH (08:16)
[2023-01-03] MEDS ORDERED: FLUTICASONE/VILANTEROL 200/25MCG 14 PUFFS/INHALER INH SCH (09:00)
[2023-01-03 09:51] LABS: Basophils # (auto) 0.04 K/uL (0-0.2); Basophils % (auto) 0.3 %; Eosinophils # (auto) 0.06 K/uL (0-0.50); Eosinophils % (auto) 0.4 %; Hematocrit (blood only) 22.8 % (37.0-47.0); Hemoglobin 7.7 g/dl (12.0-16.0); Immature Granulocytes # (auto) 0.13 K/uL (0.01-0.20); Immature Granulocytes % (auto) 0.8 %; Lymphocytes # (auto) 1.48 K/uL (1.2-3.4); Lymphocytes % (auto) 9.3 %; Mean Corpuscular Hemoglobin 27.6 pg (25.0-34.0); Mean Corpuscular Hgb Conc 33.8 g/dL (32.0-36.0); Mean Corpuscular Volume 81.7 fL (80.0-100.0); Mean Platelet Volume 10.1 fL (9.4-12.4); Monocytes # (auto) 0.81 K/uL (0.11-0.59); Monocytes % (auto) 5.1 %; Neutrophils # (auto) 13.42 K/uL (1.40-6.50); Neutrophils % (auto) 84.1 %; Platelet Count 183 K/uL (130-400); RDW Coefficient of Variation 14.2 % (11.5-14.5); RDW Standard Deviation 41.1 fL (36.4-46.3); Red Blood Count 2.79 M/uL (4.20-5.40); White Blood Count 15.94 K/ul (4.8-10.8)
[2023-01-03 11:03] LABS: RBC Morphology Unremarkable
--- NOTE | 2023-01-03 12:41 | Obstetrical Progress Note ---
Date of Service January 03, 2023 Assessment & Plan (1) delivery delivered: POD #1 pt doing well continue POD #1 care Subjective Ambulation: ambulating normally Voiding: no voiding problems Passing Gas:: Yes Diet Tolerance:: clear liquids Lochia:: Small Feeding Type:: breast feeding Review of Systems All systems reviewed & are unremarkable except as noted in HPI & below Physical Exam Constitutional WD/WN, vitals as above well developed and well nourished Eyes PERRL, conjunctivae normal, anicteric sclerae ENMT external ear and nose normal, oropharynx normal Neck trachea midline, no thyromegaly Respiratory normal respiratory effort, lungs clear to auscultation Cardiovascular RRR, no murmur, no edema Chest (Breasts) normal inspection/palpation of breasts Gastrointestinal (Abdomen) normal bowel sounds, soft, nontender, no hepatosplenomegaly Musculoskeletal no cyanosis or clubbing, extremities motor strength 5/5 Skin no rashes, warm and dry + incision (Clean,dry and intact) Neurologic patellar DTR's 2+ bilat, sensation intact Psychiatric A+Ox3, euthymic affect Genitourinary normal external appearance Lymphatic no cervical or axillary lymphadenopathy Results & Data Vital Signs (Past 12 Hours) Vital Signs Temp Pulse Pulse Resp BP Pulse Ox O2 Del Method 01/03/23 03:00 36.7 C 106 H 16 99/64 L 98 Room Air 01/03/23 02:30 18 96 01/03/23 01:30 16 90 01/03/23 00:46 110 H 18 96 Room Air
[2023-01-03] MEDS ORDERED: bisacodyL 5 MG TABEC PO SCH (20:00)
[2023-01-03] MEDS: ceFAZolin 2000MG 2,000 MG/15 ML SYR IV SCH (23:15)
[2023-01-04] MEDS: oxyCODONE/ACETAMINOPHEN 5mg/325mg TAB PO PRN ×6 (00:33→23:52)
[2023-01-04] MEDS: IBUPROFEN 600 MG TAB PO PRN ×6 (00:34→23:53)
[2023-01-04 07:19] LABS: Hematocrit (blood only) 19.4 % (37.0-47.0); Hemoglobin 6.6 g/dl (12.0-16.0)
[2023-01-04] MEDS ORDERED: SODIUM CHLORIDE 0.9% 250 ML IV PRN (07:32)
[2023-01-04] MEDS ORDERED: diphenhydrAMINE Capsule 25 MG CAP PO ONE (07:33)
[2023-01-04] MEDS ORDERED: ACETAMINOPHEN 500 MG TAB PO ONE (07:33)
[2023-01-04] MEDS ORDERED: bisacodyL 10 MG SUPP PR PRN (09:10)
[2023-01-04] MEDS: DOCUSATE SODIUM 100 MG CAP PO SCH ×2 (09:14→19:57)
[2023-01-04] MEDS: FERROUS SULFATE 325 MG TAB PO SCH (09:14)
[2023-01-04] MEDS: PRENATAL VITAMIN 1 TAB PO SCH (09:15)
[2023-01-04] MEDS: PANTOprazole 40 MG TAB PO SCH ×2 (09:15→19:57)
[2023-01-04] MEDS: UMECLIDINIUM BROMIDE 62.5MCG/BLISTER 7 PUFFS/INHALER INH SCH (09:16)
[2023-01-04] MEDS: FLUTICASONE/VILANTEROL 200/25MCG 14 PUFFS/INHALER INH SCH (09:16)
[2023-01-04] MEDS: ONDANSETRON 8MG OD TAB PO SCH ×3 (09:19→19:58)
[2023-01-04] MEDS: SIMETHICONE 80 MG CHEW PO SCH ×4 (09:19→19:58)
[2023-01-04] MEDS: POLYETHYLENE (MIRALAX) 17 GM PACK PO PRN (09:32)
--- NOTE | 2023-01-04 09:48 | Obstetrical Progress Note ---
Date of Service January 04, 2023 Subjective Ambulation: ambulating normally Voiding: no voiding problems Passing Gas:: Yes Diet Tolerance:: regular diet Feeding Type:: breast feeding Current Pain Level(1-10): 0 doing well Physical Exam Constitutional WD/WN, vitals as above Gastrointestinal (Abdomen) Inspection/Auscultation: abdomen normal to inspection (incision c/d/i) Musculoskeletal Extremities: extremities normal to inspection Skin no rashes, warm and dry Neurologic patellar DTR's 2+ bilat, sensation intact Results & Data Vital Signs (Past 12 Hours) Vital Signs Temp Pulse Resp BP Pulse Ox O2 Del Method 01/04/23 04:30 36.3 C L 88 18 108/72 100 Room Air 01/04/23 00:30 36.5 C 100 H 18 112/76 98 Room Air Laboratory Results Laboratory Results - last 72 hr 01/02/23 01/03/23 01/04/23 07:38 09:23 06:37 WBC 15.94 H RBC 2.79 L Hgb 7.7 L 6.6 L* Hct 22.8 L 19.4 L* MCV 81.7 MCH 27.6 MCHC 33.8 RDW Std Deviation 41.1 RDW Coeff of Jillian 14.2 Plt Count 183 MPV 10.1 Immature Gran % (Auto) 0.8 Neut % (Auto) 84.1 Lymph % (Auto) 9.3 [place] % (Auto) 5.1 Eos % (Auto) 0.4 Baso % (Auto) 0.3 Neut # (Auto) 13.42 H Lymph # (Auto) 1.48 [place] # (Auto) 0.81 H Eos # (Auto) 0.06 Baso # (Auto) 0.04 Immature Gran # (Auto) 0.13 RBC Morphology Unremarkable Blood Type A Negative Antibody Screen NEGATIVE Screen Crossmatch See Detail 01/04/23 06:37 WBC RBC Hgb Hct MCV MCH MCHC RDW Std Deviation RDW Coeff of Jillian Plt Count MPV Immature Gran % (Auto) Neut % (Auto) Lymph % (Auto) [place] % (Auto) Eos % (Auto) Baso % (Auto) Neut # (Auto) Lymph # (Auto) [place] # (Auto) Eos # (Auto) Baso # (Auto) Immature Gran # (Auto) RBC Morphology Blood Type A Negative Antibody Screen Cancelled Screen Negative Crossmatch
[2023-01-04 13:49] LABS: Hematocrit (blood only) 24.2 % (37.0-47.0); Hemoglobin 8.2 g/dl (12.0-16.0)
[2023-01-05] MEDS: IBUPROFEN 600 MG TAB PO PRN ×3 (05:22→13:48)
[2023-01-05] MEDS: oxyCODONE/ACETAMINOPHEN 5mg/325mg TAB PO PRN ×3 (05:23→13:48)
[2023-01-05 07:15] LABS: Hematocrit (blood only) 23.8 % (37.0-47.0); Mean Corpuscular Hemoglobin 28.5 pg (25.0-34.0); Mean Corpuscular Hgb Conc 33.6 g/dL (32.0-36.0); Mean Corpuscular Volume 84.7 fL (80.0-100.0); Mean Platelet Volume 9.8 fL (9.4-12.4); Platelet Count 217 K/uL (130-400); RDW Coefficient of Variation 14.6 % (11.5-14.5); Red Blood Count 2.81 M/uL (4.20-5.40); White Blood Count 8.25 K/ul (4.8-10.8)
[2023-01-05] MEDS: POLYETHYLENE (MIRALAX) 17 GM PACK PO PRN (09:06)
[2023-01-05] MEDS: DOCUSATE SODIUM 100 MG CAP PO SCH (09:07)
[2023-01-05] MEDS: PRENATAL VITAMIN 1 TAB PO SCH (09:07)
[2023-01-05] MEDS: FERROUS SULFATE 325 MG TAB PO SCH (09:08)
[2023-01-05] MEDS: SIMETHICONE 80 MG CHEW PO SCH ×2 (09:08→13:49)
[2023-01-05] MEDS: PANTOprazole 40 MG TAB PO SCH (09:10)
[2023-01-05] MEDS: UMECLIDINIUM BROMIDE 62.5MCG/BLISTER 7 PUFFS/INHALER INH SCH (09:13)
[2023-01-05] MEDS: FLUTICASONE/VILANTEROL 200/25MCG 14 PUFFS/INHALER INH SCH (09:13)
[2023-01-05] MEDS: ONDANSETRON 8MG OD TAB PO SCH (09:30)
--- NOTE | 2023-01-05 11:13 | Obstetrical Progress Note ---
Date of Service January 05, 2023 Subjective Ambulation: ambulating normally Voiding: no voiding problems Passing Gas:: Yes Diet Tolerance:: regular diet Feeding Type:: breast feeding Current Pain Level(1-10): 0 doing well Physical Exam Constitutional WD/WN, vitals as above Gastrointestinal (Abdomen) Inspection/Auscultation: abdomen normal to inspection incision c/d/i Musculoskeletal Extremities: extremities normal to inspection Skin no rashes, warm and dry Neurologic patellar DTR's 2+ bilat, sensation intact Psychiatric A+Ox3, euthymic affect Results & Data Vital Signs (Past 12 Hours) Vital Signs Temp Pulse Pulse Resp BP Pulse Ox O2 Del Method 01/05/23 08:50 36.6 C 85 16 115/81 100 Room Air 01/05/23 02:45 36.8 C 100 H 18 120/88 96 Room Air Laboratory Results 12/31/22 12/31/22 01/02/23 09:00 09:01 07:38 WBC 9.49 RBC 4.35 Hgb 11.8 L Hct 34.5 L MCV 79.3 L MCH 27.1 MCHC 34.2 RDW Std Deviation 38.1 RDW Coeff of Jillian 13.4 Plt Count 214 MPV 10.1 Immature Gran % (Auto) Neut % (Auto) Lymph % (Auto) [place] % (Auto) Eos % (Auto) Baso % (Auto) Neut # (Auto) Lymph # (Auto) [place] # (Auto) Eos # (Auto) Baso # (Auto) Immature Gran # (Auto) RBC Morphology SARS-CoV-2, RNA, NAAT NEGATIVE Blood Type A Negative Antibody Screen NEGATIVE Screen Crossmatch See Detail 01/03/23 01/04/23 01/04/23 09:23 06:37 06:37 WBC 15.94 H RBC 2.79 L Hgb 7.7 L 6.6 L* Hct 22.8 L 19.4 L* MCV 81.7 MCH 27.6 MCHC 33.8 RDW Std Deviation 41.1 RDW Coeff of Jillian 14.2 Plt Count 183 MPV 10.1 Immature Gran % (Auto) 0.8 Neut % (Auto) 84.1 Lymph % (Auto) 9.3 [place] % (Auto) 5.1 Eos % (Auto) 0.4 Baso % (Auto) 0.3 Neut # (Auto) 13.42 H Lymph # (Auto) 1.48 [place] # (Auto) 0.81 H Eos # (Auto) 0.06 Baso # (Auto) 0.04 Immature Gran # (Auto) 0.13 RBC Morphology Unremarkable SARS-CoV-2, RNA, NAAT Blood Type A Negative Antibody Screen Cancelled Screen Negative Crossmatch 01/04/23 01/05/23 12:56 06:12 WBC 8.25 RBC 2.81 L Hgb 8.2 L 8.0 L Hct 24.2 L 23.8 L MCV 84.7 MCH 28.5 MCHC 33.6 RDW Std Deviation 45.0 RDW Coeff of Jillian 14.6 H Plt Count 217 MPV 9.8 Immature Gran % (Auto) Neut % (Auto) Lymph % (Auto) [place] % (Auto) Eos % (Auto) Baso % (Auto) Neut # (Auto) Lymph # (Auto) [place] # (Auto) Eos # (Auto) Baso # (Auto) Immature Gran # (Auto) RBC Morphology SARS-CoV-2, RNA, NAAT Blood Type Antibody Screen Screen Crossmatch
--- NOTE | 2023-01-10 15:57 | Discharge Summary ---
Date of Service January 10, 2023 Admission HPI Per Admitting Provider 27 F P0000 at 41.1 weeks admitted for IOL for post dates . GBS is negative. Discharge Data Consultations 12/31/22 08:48 Consult Anesthesiology Stat Procedures Performed Operation Date: 01/02/23 07:45 Actual Procedures p Section in LD, of live male child at 0810 - Casey Yan MD Hospital Course (1) delivery delivered: Plan Hospital course the patient was brought in for induction of labor she ended up having a section delivering a live male there were no complications she was discharged home in stable condition home-going instructions were reviewed and the patient was given medication for pain including Motrin and Percocet and she will be followed in 1 week in the office for incision check thank you
== END 2023-01-05 16:10 | disposition home or self-care (01) | DRG 788 ==
LOC: 4S1 07:37 → 4E2 01-02 12:15